=== PATIENT | female | born 2005 | race Two or more races ===

== ENCOUNTER 2024-12-02 15:56 | Emergency (ER) | payer MEDICAID, OTHER ==
[~2024-12-02] VITALS: Ht 162.6 cm; Wt 86.8 kg
[2024-12-02 16:02] VITALS: TEMP 97.8
--- NOTE | 2024-12-02 16:46 | ED.PDOC ---
History of Present Illness HPI Comments This is a 19-year-old female who comes in with chief complaint of violent vomiting as well as numbness in her hands and face area. The patient states that she took some type of supplement and 30 minutes later she started with a violent vomiting as well as the numbness in her hands and face. The patient states that she did developed some chest pain and some shortness a breath. She described the chest pain as sharp and rated as an 8/10. Upon arrival, the patient states that she is feeling somewhat better. The patient was able to ambulate into the emergency department's without any difficulty. Chief Complaint: Chest Pain Time Seen by MD: 16:00 Reviewed Notes: Nurses Notes, Medications, Allergies (No allergies to medications) Allergies: Coded Allergies: NO KNOWN ALLERGIES (Unverified , 12/02/24) Information Source: Patient Mode of Arrival: Ambulatory Severity: Mild Timing: Minutes Duration: Intermittent Prehospital treatment: None Associated signs and symptoms Associated numbness of hands and face. The patient is also having some chest pain and shortness a breath Past Medical History PAST MEDICAL HISTORY: Denies Surgical History: Denies all surgeries PIZZA COOK History: No Pertinent PIZZA COOK History Family History Family History: Family hx of DM Social History Smoker: Non-Smoker Alcohol: Denies ETOH Use Drugs: Marijuana Lives In: Home Constitutional: reports: others (Numbness to the hands, face); denies: chills, diaphoresis, fatigue, fever, malaise, sweats, weakness EENTM: denies: blurred vision, double vision, ear bleeding, ear discharge, ear drainage, ear pain, ear ringing, eye pain, eye redness, hearing loss, mouth pain, mouth swelling, nasal discharge, nose bleeding, nose congestion, nose pain, photophobia, tearing, throat pain, throat swelling, voice changes, others Respiratory: reports: shortness of breath; denies: cough, hemoptysis, orthopnea, SOB at rest, SOB with excertion, stridor, wheezing, others Cardiovascular: reports: chest pain; denies: dizzy spells, diaphoresis, Dyspnea on exertion, edema, irregular heart beat, left arm pain, lightheadedness, palpitations, PND, syncope, others Gastrointestinal: denies: abdomen distended, abdominal pain, blood streaked bowels, constipated, diarrhea, dysphagia, difficulty swallowing, hematemesis, melena, nausea, poor appetite, poor fluid intake, rectal bleeding, rectal pain, vomiting, others Genitourinary: denies: abnormal vagina bleeding, burning, dyspareunia, dysuria, flank pain, frequency, hematuria, incontinence, pain, , vagina discharge, urgency, others Neurological: denies: dizziness, fainting, headache, left sided numbness, left sided weakness, numbness, paresthesia, pre-existing deficit, right sided numb ness, right sided weakness, seizure, speech problems, tingling, tremors, weakness, others Musculoskeletal: denies: back pain, gout, joint pain, joint swelling, muscle pain, muscle stiffness, neck pain, others Integumetry: denies: bruises, change in color, change in hair/nails, dryness, laceration, lesions, lumps, rash, wounds, others Allergic/Immunocompromised: denies: Difficulty Healing, Frequent Infections, Hives, Itching, others Hematologic/Lymphatic: denies: anemia, blood clots, easy bleeding, easy bruising, swollen glands, others Endocrine: denies: excessive hunger, excessive sweating, excessive thirst, excessive urination, flushing, intolerance to cold, intolerance to heat, unexplained weight gain, unexplained weight loss, others Psychiatric: denies: anxiety, bipolar disorder, depression, hopeless, panic disorder, schizophrenia, sleepless, suicidal, others Physical Exam General Appearance: No Apparent Distress, Obese HEENT: Normal ENT Inspection, Pharynx Normal, TMs Normal Neck: Full Range of Motion, Non-Tender, Normal, Normal Inspection Respiratory: Chest Non-Tender, Lungs Clear, No Accessory Muscle Use, No Respiratory Distress, Normal Breath Sounds Cardiovascular: No Edema, No JVD, No Murmur, No Gallop, Normal Peripheral Pulses, Regular Rate/Rhythm Breast Exam: Deferred Gastrointestinal: No Organomegaly, Non Tender, No Pulsatile Mass, Normal Bowel Sounds, Soft Genitalia: Deferred Pelvic: Deferred Rectal: Deferred Extremities: No calf tenderness, Normal capillary refill, Normal inspection, Normal range of motion, Non-tender, No pedal edema Musculoskeletal : Apperance: Normal Neurologic: Alert, 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 Was a procedure done?: No EKG EKG : Pulse Rate (adult): 63 [place]: Normal Cardiac Rhythm: NSR Block: None ST: Nonsp Differential Dx Considerations may include: Generalized weakness, electrolyte imbalance, dehydration X-Ray, Labs, Meds, VS Vital Signs Date Time Temp Pulse Resp B/P (MAP) Pulse Ox O2 Delivery O2 Flow Rate FiO2 12/02/24 17:11 68 12/02/24 16:46 63 12/02/24 16:02 97.8 72 20 144/93 95 97.8 12/02/24 16:01 63 Lab Test 12/02/24 18:45 12/02/24 18:23 12/02/24 16:52 Range/Units Urine Test Pending Urine Opiates Screen Pending Urine Fentanyl Screen Pending Urine Barbiturates Screen Pending Urine Phencyclidine Screen Pending Urine Amphetamines Screen Pending Urine Benzodiazepines Screen Pending Urine Cocaine Screen Pending Urine Cannabinoids Screen Pending Troponin I High Sensitivity < 3 L 3 L </=34 ng/L White Blood Count 18.3 H 4.4-10.8 10^3/uL Red Blood Count 5.50 H 4.0-5.20 10^6/uL Hemoglobin 16.7 H 12.2-16.2 g/dL Hematocrit 49.5 H 36.0-46.0 % Mean Corpuscular Volume 90.0 80.0-100.0 fL Mean Corpuscular Hemoglobin 30.3 28.0-32.0 pg Mean Corpuscular Hemoglobin Concent 33.7 32.0-36.0 g/dL Red Cell Distribution Width 13.1 11.8-14.3 % Platelet Count 239 140-450 10^3/uL Mean Platelet Volume 12.1 H 6.9-10.8 fL Neutrophils (%) (Auto) 88.9 H 37.0-80.0 % Lymphocytes (%) (Auto) 5.7 L 10.0-50.0 % Monocytes (%) (Auto) 5.1 0.0-12.0 % Eosinophils (%) (Auto) 0.1 0.0-7.0 % Basophils (%) (Auto) 0.2 0.0-2.0 % Neutrophils # (Auto) 16.2 H 1.6-8.6 10 ^3/uL Lymphocytes # (Auto) 1.0 0.4-5.4 10 ^3/uL Monocytes # (Auto) 0.9 0-1.3 10 ^3/uL Eosinophils # (Auto) 0 0-0.8 10 ^3/uL Basophils # (Auto) 0 0-0.2 10 ^3/uL Nucleated Red Blood Cells 0.1 % Sodium Level 147 H 136-145 mmol/L Potassium Level 3.7 3.5-5.1 mmol/L Chloride Level 106 98-107 mmol/L Carbon Dioxide Level 22 20-31 mmol/L Anion Gap 19 H 5-15 Blood Urea Nitrogen 7 L 9-23 mg/dL Creatinine 0.93 0.550-1.02 mg/dL Glomerular Filtration Rate Calc 90 >90 mL/min BUN/Creatinine Ratio 7.5 L 10.0-20.0 Serum Glucose 79 74-106 mg/dL Calcium Level 10.7 H 8.7-10.4 mg/dL The patient's CBC shows an elevated white blood cell count of 18.3 The rest of the CBC is within normal limits The chemistry panel is within normal limits The troponin level x2 is negative The patient is being discharged The patient will follow up with the primary care doctor The patient will return to the emergency department's condition worsens Images Reviewed?: Images reviewed and evaluated by me Time of 1ST Reevaluation: 16:45 Reevaluation 1ST: Improved Patient Education/Counseling: Diagnosis, Treatment, Prognosis, Need For Follow Up Family Education/Counseling: No Family Present SEPSIS Sepsis Screen Date sepsis recognized/suspect: Dec 02, 2024 Time Sepsis recognized/suspect: 1600 Recent Procedure: No On Antibiotic Therapy: No Respiratory Rate >20: No Heart Rate >90: No Temp<36 C (96.8 F) or >38.3 C: No SBP <90 or MAP <65 mmHG: No New Acute Mental Status Change: No Is the patient on CPAP, BIPAP,: No Physician Orders Electrocardigram (12/02/24 16:04) Electrocardigram (12/02/24 17:04) Electrocardigram (12/02/24 19:04) Test, Urine (12/02/24 16:41) Drug Screen (12/02/24 16:41) Vital Signs Date Time Temp Pulse Resp B/P (MAP) Pulse Ox O2 Delivery O2 Flow Rate FiO2 12/02/24 17:11 68 12/02/24 16:46 63 12/02/24 16:02 97.8 72 20 144/93 95 97.8 12/02/24 16:01 63 Laboratory Tests Test 12/02/24 16:52 White Blood Count 18.3 10^3/uL (4.4-10.8) H Departure 1 Departure Time of Disposition: 20:14 Impression: Primary Impression: Medication reaction Qualified Codes: T50.905A - Adverse effect of unspecified drugs, medicaments and biological substances, initial encounter Disposition: HOME / SELF CARE / HOMELESS Condition: Fair Discharged With: Self Critical Care Note Critical Care Time?: No Stability Stability form required: No Heart Score Heart Score: Heart Score Response (Comments) Value History Slightly Suspicious 0 EKG Normal 0 Age <45 0 Risk Factors 1 or 2 risk factors 1 Troponin Normal limit 0 Total 1 JIM HANSEN MD Dec 02, 2024 16:46
[2024-12-02 17:31] LABS: Chloride 106 mmol/L (98-107); Hematocrit 49.5 % (36.0-46.0); Hemoglobin 16.7 g/dL (12.2-16.2); Mean Corpuscular Hemoglobin 30.3 pg (28.0-32.0); Mean Corpuscular Volume 90.0 fL (80.0-100.0); Nucleated Red Blood Cells % 0.1 %; Potassium 3.7 mmol/L (3.5-5.1)
[2024-12-02 17:33] LABS: Anion Gap 19 (5-15); Carbon Dioxide 22 mmol/L (20-31)
[2024-12-02 17:38] LABS: BUN/Creatinine Ratio 7.5 (10.0-20.0); Glucose 79 mg/dL (74-106)
[2024-12-02 17:41] LABS: Blood Urea Nitrogen 7 mg/dL (9-23); Calcium 10.7 mg/dL (8.7-10.4); Sodium 147 mmol/L (136-145)
[2024-12-02 20:41] VITALS: BP 136/91; PULSE 93; RESP 18; O2SAT 98
--- NOTE | 2024-12-03 13:41 | ECG ---
[facility] Test Date: 2024-12-02 Test Time: 16:01:31 Pat Name: DARIANA BLOOM Department: ER Room: Gender: F [place]: GP : 2005 Requested By: JIM HANSEN Order Number: [id number] Reading MD: Grey Gil Measurements Intervals [place] Rate: 63 P: 23 ME: 95 QRS: 72 QRSD: 84 T: 8 QT: 450 QTc: 461 Interpretive Statements Sinus rhythm Short ME interval Borderline Q waves in inferior leads Electronically Signed On 12-08-2024 17:43:04 PDT by Grey Gil Please click the below link to view image of tracing.
--- NOTE | 2024-12-03 13:42 | ECG ---
[facility] Test Date: 2024-12-02 Test Time: 17:11:34 Pat Name: DARIANA BLOOM Department: ER Room: Gender: F Pediatrician/Medical Doctor: TC : 2005 Requested By: JIM HANSEN Order Number: [id number] Reading MD: Grey Gil Measurements Intervals [place] Rate: 68 P: 22 SC: 113 QRS: 73 QRSD: 86 T: 10 QT: 422 QTc: 449 Interpretive Statements Sinus rhythm Borderline short SC interval Baseline wander in lead(s) V3 Electronically Signed On 12-08-2024 17:44:26 PDT by Grey Gil Please click the below link to view image of tracing.
== END 2024-12-02 20:43 | disposition home or self-care (01) ==
LOC: ER 15:58
DX: R11.10 Vomiting, unspecified (principal); T50.905A Adverse effect of unspecified drugs, medicaments and biological substances, initial encounter; F12.90 Cannabis use, unspecified, uncomplicated; Y92.89 Other specified places as the place of occurrence of the external cause
CPT/HCPCS: 36415; 80048; 84484; 85025; 93005